=== PATIENT | female | born 1965 | race Caucasian/White ===

== ENCOUNTER 2024-10-15 09:47 | Outpatient (CLI) | payer BC, SELFPAY | END 2024-10-15 09:48 | disposition home or self-care (01) | LOC: FRMREF 09:47 | PROVIDERS: Visit Provider Obstetrics & Gynecology | DX: N39.0 Urinary tract infection, site not specified (principal) | CPT/HCPCS: 87086; 87186 ==

== ENCOUNTER 2024-10-23 11:41 | Outpatient (CLI) | payer BC, SELFPAY | END 2024-10-23 11:42 | disposition home or self-care (01) | PROVIDERS: Visit Provider Obstetrics & Gynecology | DX: N39.0 Urinary tract infection, site not specified (principal) | CPT/HCPCS: 87086 ==

== ENCOUNTER 2025-07-30 13:05 | Outpatient (CLI) | payer BC, SELFPAY ==
[2025-07-30 22:50] LABS: Bacterial Vaginosis* Negative (Negative); Candida glab/krus NOT DETECTED (No Detected)
== END 2025-07-30 13:06 | disposition home or self-care (01) ==
PROVIDERS: Visit Provider Registered Nurse
DX: N39.0 Urinary tract infection, site not specified (principal); N94.9 Unspecified condition associated with female genital organs and menstrual cycle
CPT/HCPCS: 81513; 87086; 87481; 87661

== ENCOUNTER 2025-08-31 13:15 | Outpatient (CLI) | payer BC, SELFPAY | END 2025-08-31 13:16 | disposition home or self-care (01) | LOC: NFLDREF 09-02 18:51 | PROVIDERS: Visit Provider Obstetrics & Gynecology | DX: N39.0 Urinary tract infection, site not specified (principal) | CPT/HCPCS: 87086 ==

== ENCOUNTER 2025-09-18 08:14 | Outpatient (CLI) | payer BC, SELFPAY ==
--- NOTE | 2025-09-18 09:00 | CRLHL7_ITS ---
For Patients: As a result of the Century Cures Act, medical imaging exams and procedure reports are released immediately into your electronic medical record. You may view this report before your referring provider. If you have questions, please contact your health care provider. INDICATION: Left ear pain. Sudden hearing loss. COMPARISON: None. TECHNIQUE: Noncontrast CT of the [place] bones. FINDINGS: Right: The right mastoid air cells and mastoid antrum are clear. Middle ear cavity is clear. Normal articulation of the ossicular chain. No opacification of sinus tympani. Normal tympanic membrane. The external auditory canal is patent. Tegmen tympani is intact. Normal mineralization of the otic capsule. Normal cochlea and vestibule. Normal internal auditory canal. Left: The left mastoid air cells and mastoid antrum are clear. Middle ear cavity is clear. Normal articulation of the ossicular chain. No opacification of sinus tympani. Normal tympanic membrane. The external auditory canal is patent. Tegmen tympani is intact. Normal mineralization of the otic capsule. Normal cochlea and vestibule. Normal internal auditory canal. Other: Visualized paranasal sinuses and mastoid air cells are clear. IMPRESSION: 1. Normal bilateral temporal bone structures Please note that all CT scans at this facility use dose modulation, iterative reconstruction, and/or weight-based dosing when appropriate to reduce radiation dose to as low as reasonably achievable. Dictated by Ryan Magallanes MD @ 09/21/2025 9:31:21 AM (Electronically Signed)
== END 2025-09-18 08:15 | disposition home or self-care (01) ==
LOC: CT 08:16
PROVIDERS: PCP Family Medicine; Visit Provider Physician Assistant
DX: H92.02 Otalgia, left ear (principal)
CPT/HCPCS: 70480